=== PATIENT | female | born 1975 | race Caucasian/White ===

== ENCOUNTER 2016-10-08 14:25 | Emergency (ER) | payer OTHER ==
--- NOTE | 2016-10-08 15:15 | ED CLINICAL REPORT ---
Clinical Report - Physicians/Mid Levels [facility] [address] [place] [address] 10/08/2016 14:30 Patient: GAURI PHOENIX Time Seen: 14:47; initial patient contact, initial documentation, patient care assumed. Arrived- By private vehicle. Historian- patient. HISTORY OF PRESENT ILLNESS Chief Complaint: Injury to the right 5th (little) finger. The injury happened just prior to arrival. The patient sustained a laceration from a sharp edge (vegetable slicer). Occurred at home. Patient is experiencing mild pain. Patient denies injury to the head or neck. No other injury. REVIEW OF SYSTEMS No swelling, tingling, numbness, weakness or foreign body. No skin laceration. All systems otherwise negative, except as recorded above. PAST HISTORY See nurses notes. PROBLEMS: Hepatitis C carrier. Hepatitis B carrier. Pre-diabetes. --14:50 Joanna Holden R.N. ADDITIONAL SURGERIES: Cholecystectomy. . Hernia Repair. --14:50 Joanna Holden R.N. The patient's dominant hand is the right. Tetanus immunization status is up-to-date. SOCIAL HISTORY Never smoker. No alcohol use or drug use. No recent travel. Is a local resident. FAMILY HISTORY No significant family medical history. ADDITIONAL NOTES The nursing notes have been reviewed with agreement regarding the chief complaint, HPI, ROS, PMH and patient medications and allergies. PHYSICAL EXAM Vital Signs: 10/08/2016 14:46 BP: 135/85. HR: 65. RR: 16. O2 saturation: 98%. Temp: 97.7 F. Pain level now: 6/10. Have been reviewed as normal and appear to be correct. Appearance: Alert. Oriented X3. No acute distress. Head: Head atraumatic. Eyes: Pupils equal, round and reactive to light. Eyes normal inspection. Respiratory: No respiratory distress. Skin: Skin warm and dry. Skin intact. Extremities: Hand injury present. Tip of right little finger: mild tenderness (2-3mm skin avulsion off tip, with mild active bleeding). No erythema, swelling, laceration of tip of right little finger, puncture wound or foreign body. No subungual hematoma, nail avulsion, exposed bone or loss of the nail bed on the right little finger or tip amputation of the right little finger. No wrist injury. Hand and wrist exam otherwise negative. Extremities otherwise negative. Neuro, Vascular and Tendons: Vascular status intact. Sensation intact. Motor intact. Tendon function intact. Neuro: Oriented X 3. No motor deficit. No sensory deficit. Note: isolated injury to finger. PROGRESS AND PROCEDURES Patient counseled in person regarding the patient's stable condition and diagnosis. Differential Diagnosis: Other possible considerations: tip amputation, lac, skin avulsion, nail injury. Above considerations are based on history and physical exam. Differential diagnosis was discussed with patient. Disposition: Discharged home in good and improved condition (15:14). Condition: good and stable. CLINICAL IMPRESSION Single superficial skin avulsion of the right little finger.No right fingernail injury, infection present or foreign body present. Treatment not delayed. INSTRUCTIONS Protect wound and keep wound area clean. Change dressing twice daily. Soak in warm soapy water twice daily. Apply bacitracin twice daily. Warnings: GENERAL WARNINGS: Return or contact your physician immediately if your condition worsens or changes unexpectedly, if not improving as expected, or if other problems arise. Specifically return if problem worsens. Follow-up: Follow up with your doctor in about three days as needed and for wound check. Call for an appointment. Summary of care provided to patient. Understanding of the discharge instructions verbalized by patient. (Electronically signed by Jyoti Cantrell A.R.N.P. 10/08/2016 16:12)
--- NOTE | 2016-10-08 15:15 | ED NURSING NOTES ---
Clinical Report - Nurses [facility] [address] [place] [address] 10/08/2016 14:30 Patient: GAURI PHOENIX TRIAGE Triage time 14:47. Acuity: LEVEL 4. Chief Complaint: LACERATION and (Patient reports that she cut R pinky finger on a vegetable slicer.). 14:54 10/08/16. Alert. No acute distress. SEPSIS SCREEN: Sepsis Screen. Negative (no infection suspected/documented). KEVEN COMA SCORE: [place] Coma Scale: 15- eyes open spontaneously (4); best verbal response- oriented x 4 (5); best motor response- obeys commands (6). --14:54 Joanna Holden R.N. 14:46 10/08/16. BP: 135/85. HR: 65. RR: 16. O2 saturation: 98%. Temp: 97.7 F. Pain level now: 12/02. --14:54 Joanna Holden R.N. Weight: 92.5 kg stated. Height/Length: 63 inches Per Patient. BMI: 36.1. --14:53 Joanna Holden R.N. Medications Diet supplement. --14:48 Joanna Holden R.N. MetFORMIN HCl Oral. --14:48 Joanna Holden R.N. Vitamin D Oral. --14:49 Joanna Holden R.N. PROzac Oral. --14:49 Joanna Holden R.N. Allergies BuSpar. --14:49 Joanna Holden R.N. History Arrived by private vehicle. Primary physician (Griffin Batista). This occurred (1:00 today). Occurred at home. ( Patient states "I came to the ED because I went to several clinics but they wouldn't take my insurance, and the cut won't stop bleeding."). PAST MEDICAL HX: Tetanus status: up-to-date. Immunizations: up-to-date. SOCIAL HX: Never smoker. No alcohol use or drug use. FALL RISK ASSESSMENT: Fall risk assessment completed. No fall risk identified. NUTRITIONAL RISK ASSESSMENT: The nutritional risk assessment revealed no deficiencies. FUNCTIONAL ASSESSMENT: Functional assessment: no impairments noted. LEARNING NEEDS ASSESSMENT: The learning needs assessment revealed no barriers. SKIN INTEGRITY ASSESSMENT: Skin integrity risk assessment completed. No skin integrity risk identified. --14:54 Joanna Holden R.N. PROBLEMS: Hepatitis C carrier. Hepatitis B carrier. Pre-diabetes. --14:50 Joanna Holden R.N. ADDITIONAL SURGERIES: Cholecystectomy. . Hernia Repair. --14:50 Joanna Holden R.N. Interventions ID band on patient. To treatment room. --14:54 Joanna Holden R.N. PHYSICAL ASSESSMENT 14:55 10/08/16. GENERAL / NEURO / PSYCH: Alert. Oriented X 4. Appears in no acute distress. RESPIRATORY: Respirations not labored. CVS: Pulses within normal limits. Capillary refill less than 2 seconds. EXTREMITIES: Extremities exhibit normal ROM. Tip of right little finger: subcutaneous 1.0 cm laceration with bleeding; (involves the tip of nail and finger.). SKIN: Skin intact. Skin is warm and dry. --14:55 Joanna Holden R.N. NURSING PROGRESS NOTES 15:08 10/08/16. Two patient identifiers checked. Call light placed in reach. Side rails up x 1. Bed placed in lowest position. Brakes of bed on. Patient informed about reason for wait and about plan of care. --15:09 Joanna Holden R.N. DISPOSITION / DISCHARGE 15:30. No learning barriers present. Discharge instructions provided and reviewed with the patient and spouse. Treatments reviewed. Reviewed referrals. Patient and spouse verbalized understanding. Written instructions provided in German. The patient was discharged by the nurse practitioner. She was discharged home and accompanied by spouse. She left the Emergency Department ambulatory and via private vehicle. Spouse driving. --15:32 Joanna Holden R.N. 14:46 10/08/16. BP: 135/85. HR: 65. RR: 16. O2 saturation: 98%. Temp: 97.7 F. Pain level now: 12/02. --15:32 Joanna Holden R.N. Locked/Released at 10/08/2016 18:21 by Joanna Holden R.N.
--- NOTE | 2016-10-08 15:15 | ED ORDER SUMMARY ---
..... Patient: GAURI PHOENIX OrderSheet [facility] VisitID: [id number] [address] [place] [address] 41y, F Registration Date/Time: 10/08/2016 ORDER SHEET Weight: 92.5 kg (stated) Allergies: BuSpar GENERAL ORDERS: Dress Wounds (pressure bandage with gel foam) (15:12 10/08/2016 Ronit A.R.N.P.) (15:13 Kristofer Herron) MEDICATION ORDERS: IV FLUIDS: ORDER SHEET NOTES: [Electronically signed by Jyoti CantrellRMarcyN.PMarcy (16:12 10/08/2016)] [Electronically signed by Joanna Holden R.N. (18:21 10/08/2016)] [Electronically locked/signed by Joanna Holden R.N. (18:21 10/08/2016)]
--- NOTE | 2016-10-08 15:15 | ED ORDER SUMMARY ---
..... Patient: GAURI PHOENIX OrderSheet [facility] VisitID: [id number] [address] [place] [address] 41y, F Registration Date/Time: 10/08/2016 ORDER SHEET Weight: 92.5 kg (stated) Allergies: BuSpar GENERAL ORDERS: Dress Wounds (pressure bandage with gel foam) (15:12 10/08/2016 Ronit A.R.N.P.) (15:13 Kristofer Herron) MEDICATION ORDERS: IV FLUIDS: ORDER SHEET NOTES: [Electronically signed by Jyoti CantrellRMarcyN.PMarcy (16:12 10/08/2016)] [Electronically signed by Joanna Holden R.N. (18:21 10/08/2016)] [Electronically locked/signed by Joanna Holden R.N. (18:21 10/08/2016)]
--- NOTE | 2016-10-08 18:22 | ED MED RECONCILIATION SUMMARY ---
Patient: GAURI PHOENIX Medication Reconciliation Report [facility] VisitID: [id number] [address] [place] [address] 41y, F Registration Date/Time: 10/08/2016 Weight: 92.5 kg Height/Length: 63 in. BMI: 36.1 ALLERGIES: BuSpar The patient's Home Medications are listed below: THE FOLLOWING MEDICATIONS NEED TO BE RECONCILED: Diet supplement MetFORMIN HCl Oral PROzac Oral Vitamin D Oral The source(s) of the original Home Medication information: Not obtained. The following Medications were given to the patient in the Emergency Department: None. The following Medications were prescribed to the patient: None.
--- NOTE | 2016-10-08 18:22 | ED MAR SUMMARY ---
..... Medication Administration Record [facility] [address] [place], [place] [id number] Patient: GAURI PHOENIX Visit ID: [id number] 41y, F Weight: 92.5 kg Height/Length: 63 in BMI: 36.1 ALLERGIES: BuSpar
--- NOTE | 2016-10-08 18:22 | ED MED RECONCILIATION SUMMARY ---
Patient: GAURI PHOENIX Medication Reconciliation Report [facility] VisitID: [id number] [address] [place] [address] 41y, F Registration Date/Time: 10/08/2016 Weight: 92.5 kg Height/Length: 63 in. BMI: 36.1 ALLERGIES: BuSpar The patient's Home Medications are listed below: THE FOLLOWING MEDICATIONS NEED TO BE RECONCILED: Diet supplement MetFORMIN HCl Oral PROzac Oral Vitamin D Oral The source(s) of the original Home Medication information: Not obtained. The following Medications were given to the patient in the Emergency Department: None. The following Medications were prescribed to the patient: None.
--- NOTE | 2016-10-08 18:22 | ED MAR SUMMARY ---
..... Medication Administration Record [facility] [address] [place], [place] [id number] Patient: GAURI PHOENIX Visit ID: [id number] 41y, F Weight: 92.5 kg Height/Length: 63 in BMI: 36.1 ALLERGIES: BuSpar
--- NOTE | 2016-10-08 18:22 | ED DISCHARGE INSTRUCTIONS ---
Patient: GAURI PHOENIX General Instructions [facility] VisitID: [id number] [address] [place] [address] 41y, F Registration Date/Time: 10/08/2016 Single superficial skin avulsion of the right little finger.No right fingernail injury, infection present or foreign body present. Treatment not delayed. INSTRUCTIONS Protect wound and keep wound area clean. Change dressing twice daily. Soak in warm soapy water twice daily. Apply bacitracin twice daily. Warnings: GENERAL WARNINGS: Return or contact your physician immediately if your condition worsens or changes unexpectedly, if not improving as expected, or if other problems arise. Specifically return if problem worsens. Follow-up: Follow up with your doctor in about three days as needed and for wound check. Call for an appointment. Summary of care provided to patient. Understanding of the discharge instructions verbalized by patient. (Electronically signed by Jyoti Cantrell A.R.N.P. 10/08/2016 16:12)
--- NOTE | 2016-10-08 18:22 | ED DISCHARGE INSTRUCTIONS ---
Patient: GAURI PHOENIX General Instructions [facility] VisitID: [id number] [address] [place] [address] 41y, F Registration Date/Time: 10/08/2016 Single superficial skin avulsion of the right little finger.No right fingernail injury, infection present or foreign body present. Treatment not delayed. INSTRUCTIONS Protect wound and keep wound area clean. Change dressing twice daily. Soak in warm soapy water twice daily. Apply bacitracin twice daily. Warnings: GENERAL WARNINGS: Return or contact your physician immediately if your condition worsens or changes unexpectedly, if not improving as expected, or if other problems arise. Specifically return if problem worsens. Follow-up: Follow up with your doctor in about three days as needed and for wound check. Call for an appointment. Summary of care provided to patient. Understanding of the discharge instructions verbalized by patient. (Electronically signed by Jyoti Cantrell A.R.N.P. 10/08/2016 16:12)
== END 2016-10-08 15:30 | disposition home or self-care (01) ==
LOC: ED SRH 14:25
DX: S61.216A Laceration without foreign body of right little finger without damage to nail, initial encounter (principal); B18.1 Chronic viral hepatitis B without delta-agent; B18.2 Chronic viral hepatitis C; W45.8XXA Other foreign body or object entering through skin, initial encounter; Y93.9 Activity, unspecified; Y99.9 Unspecified external cause status; Y92.009 Unspecified place in unspecified non-institutional (private) residence as the place of occurrence of the external cause